=== PATIENT | male | born 1980 | race Caucasian/White ===

== ENCOUNTER 2017-03-14 10:39 | Inpatient (IN) | payer MEDICAID ==
[~2017-03-14] VITALS: Ht 185.4 cm; Wt 117.9 kg
[2017-03-14 10:56] VITALS: BP 129/72
[2017-03-14] MEDS ORDERED: NACL 0.9% 1,000 ML IV SCH (11:04)
[2017-03-14] MEDS ORDERED: ONDANSETRON 4 MG/2 ML VIAL IVP ONE (11:05)
[2017-03-14 11:18] LABS: HEMATOCRIT 45.2 % (36-52); HEMOGLOBIN 15.1 g/dL (12.0-18.0); MEAN CORPUSCULAR HEMOGLOBIN 29 pg (27-31); MEAN CORPUSCULAR HGB CONC 33 g/dL (33-37); MEAN CORPUSCULAR VOLUME 86 fL (80-94); PLATELET COUNT (AUTO) 116 K/uL (140-450); RED BLOOD CELL COUNT(AUTO) 5.28 MIL/uL (4.20-6.10); RED CELL DISTRIBUTION WIDTH 13.6 % (11.6-13.7); WHITE BLOOD COUNT (AUTO) 7.9 K/uL (4.8-10.8)
[2017-03-14 11:34] LABS: ALBUMIN 3.5 g/dL (3.4-5.0); ANION GAP 14.3 (8-16); CALCIUM 8.9 mg/dL (8.5-10.1); CARBON DIOXIDE 23.7 mmol/L (21-32); CREATININE 1.4 mg/dL (0.7-1.3); TOTAL BILIRUBIN 1.5 mg/dL (0.0-1.0); TOTAL PROTEIN, SERUM 8.3 g/dL (6.4-8.2)
[2017-03-14 11:38] LABS: BAND % (MANUAL) 23 % (0-8); LYMPHOCYTES % (MANUAL) 12 % (20-46); MONOCYTES % (MANUAL) 5 % (5-12); NEUTROPHILS % (MANUAL) 60 (43-65)
[2017-03-14 11:39] LABS: BASOPHILS % (MANUAL) 0 % (0-2); EOSINOPHILS % (MANUAL) 0 % (0-4); PLATELET ESTIMATE SLIGHTLY DECREASED
[2017-03-14] MEDS ORDERED: LORazepam 2 MG/ML VIAL IVP PRN (14:45)
[2017-03-14] MEDS ORDERED: ONDANSETRON 4 MG/2 ML VIAL IVP PRN (14:45)
[2017-03-14] MEDS ORDERED: HYDROcodone/APAP 5/325 MG 1 TAB TAB PO PRN (14:45)
[2017-03-14 15:22] LABS: BILIRUBIN,URINE 2+ (NEGATIVE); BLOOD, URINE 2+ (NEGATIVE); COLOR,URINE ORANGE (YELLOW); LEUKOCYTE ESTERASE ,URINE NEGATIVE (NEGATIVE); NITRITE, URINE NEGATIVE (NEGATIVE); PROTEIN,URINE 2+ (NEGATIVE); UGLUCOSE NEGATIVE (NEGATIVE)
[2017-03-14 15:25] LABS: APPEARANCE,URINE HAZY (CLEAR)
[2017-03-14] MEDS ORDERED: POTASSIUM CHLORIDE 10 MEQ TABER PO SCH (15:30)
[2017-03-14 15:33] LABS: ICTOTEST POSITIVE (NEGATIVE); RBC,URINE 3-10 (FEW) /HPF (0-5)
[2017-03-14 15:34] LABS: BACTERIA,URINE 1+ /HPF (None Seen); WBC,URINE 6-15 (FEW) /HPF (0-5)
[2017-03-14] MEDS: DEXT 5% /NACL 0.9% 1,000 ML IV SCH (16:19)
[2017-03-14 16:30] VITALS: BP 127/74
[2017-03-14] MEDS ORDERED: FAMOTIDINE 20 MG TAB PO ONE (16:50)
[2017-03-14 18:54] LABS: AMPHETAMINE, URINE NEG. ng/ml (NEG <=1000); BARBITURATE, URINE NEG. ng/ml (NEG <=200); BENZODIAZEPINE, URINE NEG. ng/mL (NEG <=200); CANNABINOID, URINE POS. ng/mL (NEG <=50); COCAINE, URINE NEG. ng/mL (NEG <=300); OPIATE, URINE NEG. ng/mL (NEG <=2000); PHENCYCLIDINE SCREEN,URINE NEG. ng/mL (NEG <=25)
[2017-03-14 20:00] VITALS: BP 121/71
[2017-03-14] MEDS: ACETAMINOPHEN 325 MG TAB PO PRN (23:28)
[2017-03-15] VITALS: BP 112/64
[2017-03-15] MEDS: DEXT 5% /NACL 0.9% 1,000 ML IV SCH ×3 (00:03→20:42)
[2017-03-15] MEDS: LEVOTHYROXINE 0.1 MG TAB PO SCH (05:55)
[2017-03-15 06:17] LABS: BASOPHILS # (AUTO) 0.1 K/uL (0.00-0.22); EOSINOPHILS # (AUTO) 0.1 K/uL (0-0.4); EOSINOPHILS % (AUTO) 0.9 % (0.0-4.0); HEMATOCRIT 41.6 % (36-52); LYMPHOCYTES # (AUTO) 1.4 K/uL (2.0-11.5); LYMPHOCYTES % (AUTO) 15.2 % (20.5-51.1); MEAN CORPUSCULAR HEMOGLOBIN 29 pg (27-31); MEAN CORPUSCULAR HGB CONC 34 g/dL (33-37); MEAN CORPUSCULAR VOLUME 86 fL (80-94); MONOCYTES # (AUTO) 0.6 K/uL (0.8-1.0); MONOCYTES % (AUTO) 6.4 % (1.7-9.3); NEUTROPHILS # (AUTO) 7.3 K/uL (1.8-7.7); NEUTROPHILS % (AUTO) 76.5 % (42.2-75.2); PLATELET COUNT (AUTO) 105 K/uL (140-450); RED BLOOD CELL COUNT(AUTO) 4.84 MIL/uL (4.20-6.10); RED CELL DISTRIBUTION WIDTH 13.8 % (11.6-13.7); WHITE BLOOD COUNT (AUTO) 9.5 K/uL (4.8-10.8)
[2017-03-15] MEDS: ACETAMINOPHEN 325 MG TAB PO PRN ×5 (06:17→21:26)
[2017-03-15 06:59] LABS: ALBUMIN 3.1 g/dL (3.4-5.0); ANION GAP 13.2 (8-16); CALCIUM 8.2 mg/dL (8.5-10.1); CARBON DIOXIDE 23.8 mmol/L (21-32); CREATININE 1.2 mg/dL (0.7-1.3); MAGNESIUM 1.7 mg/dL (1.8-2.4); PHOSPHORUS 2.1 mg/dL (2.5-4.9); TOTAL PROTEIN, SERUM 7.6 g/dL (6.4-8.2)
[2017-03-15 08:00] VITALS: BP 123/66
[2017-03-15] MEDS ORDERED: KCL 20 MEQ/WATER INJ PREMIX 200 ML IV SCH (09:00)
[2017-03-15] MEDS ORDERED: AZITHROMYCIN 250 MG TAB PO SCH (09:00)
[2017-03-15] MEDS: FAMOTIDINE 20 MG TAB PO SCH ×2 (09:03→20:41)
[2017-03-15] MEDS ORDERED: MAG SULF 2000 MG/WATER PREMIX 50 ML IV SCH (13:00)
[2017-03-15 16:00] VITALS: BP 134/60
[2017-03-15] MEDS ORDERED: POTASSIUM CHLORIDE 40 MEQ, LIDOCAINE 1% 25 MG in NACL 0.9% 250 ML IV SCH (16:00)
[2017-03-15] MEDS ORDERED: VANCOMYCIN PER PHARMACY MC PRN (16:35)
[2017-03-15] MEDS: VANCOMYCIN 1GM/DEXT 5% PREMIX 200 ML IV SCH (17:40)
[2017-03-15 20:00] VITALS: BP 131/84
[2017-03-15] MEDS: traZODone 50 MG TAB PO SCH (20:41)
[2017-03-16] VITALS: BP 120/83
[2017-03-16] MEDS: VANCOMYCIN 1GM/DEXT 5% PREMIX 200 ML IV SCH (01:15)
[2017-03-16] MEDS: DEXT 5% /NACL 0.9% 1,000 ML IV SCH ×2 (05:31→16:45)
[2017-03-16] MEDS: LEVOTHYROXINE 0.1 MG TAB PO SCH (05:31)
[2017-03-16 07:32] LABS: HEPATITIS A ANTIBODY IGM Negative (Negative); HEPATITIS A ANTIBODY TOTAL Positive (Negative); HEPATITIS B CORE AB TOTAL Negative (Negative); HEPATITIS B CORE, IGM Negative (Negative); HEPATITIS B SURFACE AB Reactive (.); HEPATITIS B SURFACE ANTIGEN Negative (Negative); HEPATITIS C VIRUS ANTIBODY <0.1 s/co ratio (0.0-0.9)
[2017-03-16 08:00] VITALS: BP 127/69
[2017-03-16 08:25] LABS: ANION GAP 11.4 (8-16); CALCIUM 8.1 mg/dL (8.5-10.1); CARBON DIOXIDE 23.8 mmol/L (21-32); POTASSIUM 3.2 mmol/L (3.5-5.1)
[2017-03-16] MEDS: FAMOTIDINE 20 MG TAB PO SCH ×2 (09:16→21:11)
[2017-03-16] MEDS ORDERED: VANCOMYCIN HCL 750 MG in DEXTROSE 5% 250 ML IV SCH (10:00)
[2017-03-16] MEDS: VANCOMYCIN HCL 1,500 MG in DEXTROSE 5% 250 ML IV SCH ×2 (10:46→17:45)
[2017-03-16 11:37] LABS: BASOPHILS # (AUTO) 0.1 K/uL (0.00-0.22); BASOPHILS % (AUTO) 0.9 % (0.0-2.0); EOSINOPHILS # (AUTO) 0.1 K/uL (0-0.4); EOSINOPHILS % (AUTO) 0.9 % (0.0-4.0); HEMATOCRIT 40.5 % (36-52); HEMOGLOBIN 13.5 g/dL (12.0-18.0); LYMPHOCYTES % (AUTO) 10.4 % (20.5-51.1); MEAN CORPUSCULAR HEMOGLOBIN 29 pg (27-31); MEAN CORPUSCULAR HGB CONC 33 g/dL (33-37); MEAN CORPUSCULAR VOLUME 86 fL (80-94); MONOCYTES # (AUTO) 0.6 K/uL (0.8-1.0); NEUTROPHILS % (AUTO) 81.8 % (42.2-75.2); PLATELET COUNT (AUTO) 98 K/uL (140-450); RED BLOOD CELL COUNT(AUTO) 4.73 MIL/uL (4.20-6.10); RED CELL DISTRIBUTION WIDTH 14.4 % (11.6-13.7); WHITE BLOOD COUNT (AUTO) 9.8 K/uL (4.8-10.8)
[2017-03-16] MEDS: ACETAMINOPHEN 325 MG TAB PO PRN (15:47)
[2017-03-16 16:00] VITALS: BP 119/76
[2017-03-16] MEDS ORDERED: POTASSIUM CHLORIDE 10 MEQ TABER PO SCH (17:23)
[2017-03-16] MEDS: traZODone 50 MG TAB PO SCH (21:11)
[2017-03-17 00:04] VITALS: BP 135/76
[2017-03-17] MEDS: VANCOMYCIN HCL 1,500 MG in DEXTROSE 5% 250 ML IV SCH ×2 (01:44→10:20)
[2017-03-17] MEDS: DEXT 5% /NACL 0.9% 1,000 ML IV SCH (01:44)
[2017-03-17] MEDS: LEVOTHYROXINE 0.1 MG TAB PO SCH (05:42)
[2017-03-17 08:00] VITALS: BP 118/72
[2017-03-17 09:20] LABS: BASOPHILS # (AUTO) 0.1 K/uL (0.00-0.22); BASOPHILS % (AUTO) 1.3 % (0.0-2.0); EOSINOPHILS # (AUTO) 0.1 K/uL (0-0.4); EOSINOPHILS % (AUTO) 0.9 % (0.0-4.0); HEMATOCRIT 39.1 % (36-52); HEMOGLOBIN 12.9 g/dL (12.0-18.0); LYMPHOCYTES # (AUTO) 1.1 K/uL (2.0-11.5); MEAN CORPUSCULAR HEMOGLOBIN 29 pg (27-31); MEAN CORPUSCULAR HGB CONC 33 g/dL (33-37); MEAN CORPUSCULAR VOLUME 87 fL (80-94); MONOCYTES # (AUTO) 0.9 K/uL (0.8-1.0); MONOCYTES % (AUTO) 9.3 % (1.7-9.3); NEUTROPHILS # (AUTO) 7.4 K/uL (1.8-7.7); NEUTROPHILS % (AUTO) 77.5 % (42.2-75.2); PLATELET COUNT (AUTO) 137 K/uL (140-450); RED CELL DISTRIBUTION WIDTH 14.3 % (11.6-13.7); WHITE BLOOD COUNT (AUTO) 9.6 K/uL (4.8-10.8)
[2017-03-17] MEDS: FAMOTIDINE 20 MG TAB PO SCH ×2 (09:23→21:48)
[2017-03-17 09:37] LABS: ANION GAP 10.2 (8-16); CALCIUM 8.2 mg/dL (8.5-10.1); CARBON DIOXIDE 25.1 mmol/L (21-32); POTASSIUM 3.3 mmol/L (3.5-5.1)
[2017-03-17] MEDS ORDERED: POTASSIUM CHLORIDE 10 MEQ TABER PO SCH (13:25)
[2017-03-17] MEDS: NACL 0.9% 1,000 ML IV SCH (13:41)
[2017-03-17] MEDS: ACETAMINOPHEN 325 MG TAB PO PRN (15:50)
[2017-03-17 16:00] VITALS: BP 114/71
[2017-03-17] MEDS: traZODone 50 MG TAB PO SCH (21:48)
[2017-03-18 01:30] VITALS: BP 112/76
[2017-03-18] MEDS: LEVOTHYROXINE 0.1 MG TAB PO SCH (06:47)
[2017-03-18 07:37] LABS: BASOPHILS % (AUTO) 0.4 % (0.0-2.0); EOSINOPHILS # (AUTO) 0.2 K/uL (0-0.4); EOSINOPHILS % (AUTO) 1.5 % (0.0-4.0); HEMOGLOBIN 12.7 g/dL (12.0-18.0); LYMPHOCYTES # (AUTO) 1.7 K/uL (2.0-11.5); LYMPHOCYTES % (AUTO) 16.9 % (20.5-51.1); MEAN CORPUSCULAR HEMOGLOBIN 30 pg (27-31); MEAN CORPUSCULAR HGB CONC 35 g/dL (33-37); MEAN CORPUSCULAR VOLUME 86 fL (80-94); MONOCYTES # (AUTO) 1.2 K/uL (0.8-1.0); NEUTROPHILS # (AUTO) 7.2 K/uL (1.8-7.7); NEUTROPHILS % (AUTO) 69.2 % (42.2-75.2); PLATELET COUNT (AUTO) 226 K/uL (140-450); RED BLOOD CELL COUNT(AUTO) 4.19 MIL/uL (4.20-6.10); RED CELL DISTRIBUTION WIDTH 14.5 % (11.6-13.7); WHITE BLOOD COUNT (AUTO) 10.3 K/uL (4.8-10.8)
[2017-03-18 07:59] LABS: ANION GAP 12.5 (8-16); CALCIUM 8.5 mg/dL (8.5-10.1); CARBON DIOXIDE 23.2 mmol/L (21-32); CREATININE 0.8 mg/dL (0.7-1.3); POTASSIUM 3.7 mmol/L (3.5-5.1)
[2017-03-18 08:00] VITALS: BP 108/68
[2017-03-18 08:02] LABS: MAGNESIUM 1.9 mg/dL (1.8-2.4); PHOSPHORUS 3.7 mg/dL (2.5-4.9)
[2017-03-18] MEDS: NACL 0.9% 1,000 ML IV SCH ×2 (08:47)
[2017-03-18] MEDS: FAMOTIDINE 20 MG TAB PO SCH (08:54)
[2017-03-18] MEDS ORDERED: ACET-1182 PO (09:26)
[2017-03-18] MEDS ORDERED: FAMO20TA13 PO (09:26)
[2017-03-18] MEDS ORDERED: SYN.1 PO (09:26)
== END 2017-03-18 11:40 | disposition home or self-care (01) | DRG 720 ==
LOC: MED 10:39 → MTU 14:53
PROVIDERS: ADMIT Preventive Medicine Preventive Medicine/Occupational Environmental Medicine; ATTEND Preventive Medicine Preventive Medicine/Occupational Environmental Medicine
PROC: 02HV33Z Insertion of Infusion Device into Superior Vena Cava, Percutaneous Approach (ICD-10-PCS; principal; 2017-03-17)
PROC: B548ZZA Ultrasonography of Superior Vena Cava, Guidance (ICD-10-PCS; 2017-03-17)
DX: A41.01 Sepsis due to Methicillin susceptible Staphylococcus aureus (principal); N17.9 Acute kidney failure, unspecified; D69.6 Thrombocytopenia, unspecified; E11.65 Type 2 diabetes mellitus with hyperglycemia; E83.51 Hypocalcemia; E87.1 Hypo-osmolality and hyponatremia; B95.61 Methicillin susceptible Staphylococcus aureus infection as the cause of diseases classified elsewhere; B96.89 Other specified bacterial agents as the cause of diseases classified elsewhere; J02.8 Acute pharyngitis due to other specified organisms; F12.10 Cannabis abuse, uncomplicated; T39.395A Adverse effect of other nonsteroidal anti-inflammatory drugs [NSAID], initial encounter; E66.9 Obesity, unspecified; E87.6 Hypokalemia; K21.9 Gastro-esophageal reflux disease without esophagitis; E03.9 Hypothyroidism, unspecified; N39.0 Urinary tract infection, site not specified; E86.0 Dehydration; R74.0 Nonspecific elevation of levels of transaminase and lactic acid dehydrogenase [LDH]; K76.0 Fatty (change of) liver, not elsewhere classified; Z72.0 Tobacco use; Z90.49 Acquired absence of other specified parts of digestive tract; Z79.899 Other long term (current) drug therapy; Y92.89 Other specified places as the place of occurrence of the external cause; Z68.34 Body mass index [BMI] 34.0-34.9, adult
CPT/HCPCS: 36415; 71010; 76700; 80048; 80053; 80202; 80305; 81001; 82150; 82948; 83690; 83735; 84100; 84443; 85025; 85651; 86140; 86704; 86706; 86708; 86709; 86803; 87040; 87081; 87086; 87186; 87340; 93005; 96361; 96374; 99285; C1751; J0696; J2001; J2405; J3370; J3475; J3480; J7030; J7042; J7060; Q0092

== ENCOUNTER 2020-04-10 15:49 | Emergency (ER) | payer SELFPAY ==
[~2020-04-10] VITALS: Ht 185.4 cm; Wt 120.2 kg
[~2020-04-10 15:49] MED LIST: ACET-1182 PO; FAMO20TA13 PO; SYN.1 PO
[2020-04-10 15:52] VITALS: BP 147/83
--- NOTE | 2020-04-10 16:18 | NUR ---
39 Y/O MALE C/O LEFT SIDED CHEST PAIN X1 DAY RADIATES TO LEFT BACK. PAIN IS 9/10, PT STATES HE TOOK TYLENOL WITH CODEINE FOR PAIN, BUT IT IS UNRELIEVED. DENIES ANY SOB/COUGH/FEVER. AAOX4. AMBULATORY WITH STEADY GAIT. AFEBRILE. VSS. PT STATES HIS ONLY DRUG USE IS MARIJUANA AND TOBACCO PMH: THYROID ISSUES. NKA
[2020-04-10 16:54] LABS: BASOPHILS % (AUTO) 0.5 % (0.0-2.0); EOSINOPHILS # (AUTO) 0.4 K/uL (0-0.4); EOSINOPHILS % (AUTO) 3.8 % (0.0-4.0); HEMATOCRIT 46.9 % (36-52); HEMOGLOBIN 15.4 g/dL (12.0-18.0); LYMPHOCYTES # (AUTO) 2.2 K/uL (2.0-11.5); LYMPHOCYTES % (AUTO) 21.8 % (20.5-51.1); MEAN CORPUSCULAR HEMOGLOBIN 30 pg (27-31); MEAN CORPUSCULAR HGB CONC 33 g/dL (33-37); MEAN CORPUSCULAR VOLUME 90.9 fL (80-94); MONOCYTES # (AUTO) 0.9 K/uL (0.8-1.0); MONOCYTES % (AUTO) 8.5 % (1.7-9.3); NEUTROPHILS # (AUTO) 6.6 K/uL (1.8-7.7); NEUTROPHILS % (AUTO) 65.4 % (42.2-75.2); PLATELET COUNT (AUTO) 246 K/uL (140-450); RED BLOOD CELL COUNT(AUTO) 5.16 MIL/uL (4.20-6.10); RED CELL DISTRIBUTION WIDTH 14.5 % (11.6-13.7); WHITE BLOOD COUNT (AUTO) 10.1 K/uL (4.8-10.8)
[2020-04-10 17:10] LABS: PROTHROMBIN TIME 9.8 secs (10.8-13.4)
[2020-04-10 17:14] LABS: ALBUMIN 3.7 g/dL (3.4-5.0); ANION GAP 15.3 (8-16); CARBON DIOXIDE 25.8 mmol/L (21-32); CREATININE 1.3 mg/dL (0.6-1.3); POTASSIUM 4.1 mmol/L (3.5-5.1); TOTAL BILIRUBIN 0.3 mg/dL (0.0-1.0)
[2020-04-10 17:24] LABS: FREE T4 (FREE THYROXINE) 0.56 ng/dL (0.76-1.46); THYROID STIMULATING HORMONE 19.72 uIU/mL (0.34-3.74)
[2020-04-10 18:47] VITALS: BP 142/79
== END 2020-04-10 18:48 | disposition home or self-care (01) ==
LOC: MED 15:49
DX: R07.9 Chest pain, unspecified (principal); E07.9 Disorder of thyroid, unspecified; K21.9 Gastro-esophageal reflux disease without esophagitis; Z79.899 Other long term (current) drug therapy
CPT/HCPCS: 36415; 71045; 80053; 83880; 84439; 84443; 84484; 85025; 85610; 85730; 93005; 99285; Q0092

== ENCOUNTER 2020-11-25 18:07 | Emergency (ER) | payer SELFPAY ==
[~2020-11-25] VITALS: Ht 182.9 cm; Wt 115.2 kg
[2020-11-25 18:30] VITALS: BP 125/73
[2020-11-25] MEDS ORDERED: KETOROLAC 60 MG/2 ML VIAL IM ONE (20:10)
[2020-11-25 20:43] LABS: BASOPHILS # (AUTO) 0.1 K/uL (0.00-0.22); BASOPHILS % (AUTO) 0.4 % (0.0-2.0); EOSINOPHILS # (AUTO) 0.4 K/uL (0-0.4); EOSINOPHILS % (AUTO) 3.6 % (0.0-4.0); HEMATOCRIT 47.1 % (36-52); HEMOGLOBIN 15.7 g/dL (12.0-18.0); LYMPHOCYTES # (AUTO) 2.4 K/uL (2.0-11.5); LYMPHOCYTES % (AUTO) 19.8 % (20.5-51.1); MEAN CORPUSCULAR HEMOGLOBIN 30 pg (27-31); MEAN CORPUSCULAR HGB CONC 33 g/dL (33-37); MEAN CORPUSCULAR VOLUME 89.3 fL (80-94); MONOCYTES % (AUTO) 8.1 % (1.7-9.3); NEUTROPHILS # (AUTO) 8.3 K/uL (1.8-7.7); NEUTROPHILS % (AUTO) 68.1 % (42.2-75.2); PLATELET COUNT (AUTO) 260 K/uL (140-450); RED BLOOD CELL COUNT(AUTO) 5.27 MIL/uL (4.20-6.10); WHITE BLOOD COUNT (AUTO) 12.2 K/uL (4.8-10.8)
[2020-11-25 21:03] LABS: ALBUMIN 3.7 g/dL (3.4-5.0); ANION GAP 10.2 (8-16); CREATININE 1.4 mg/dL (0.6-1.3); FREE T4 (FREE THYROXINE) 0.53 ng/dL (0.76-1.46); POTASSIUM 4.2 mmol/L (3.5-5.1); THYROID STIMULATING HORMONE 18.21 uIU/mL (0.34-3.74); TOTAL BILIRUBIN 0.4 mg/dL (0.0-1.0)
[2020-11-25] MEDS ORDERED: SYN.1 PO (21:31)
[2020-11-25 21:52] VITALS: BP 125/73
== END 2020-11-25 21:52 | disposition home or self-care (01) ==
LOC: MED 18:07
DX: E03.9 Hypothyroidism, unspecified (principal); K21.9 Gastro-esophageal reflux disease without esophagitis; F17.200 Nicotine dependence, unspecified, uncomplicated; Z79.899 Other long term (current) drug therapy; Z90.49 Acquired absence of other specified parts of digestive tract
CPT/HCPCS: 36415; 80053; 84439; 84443; 85025; 93005; 96372; 99284; J1885

== ENCOUNTER 2023-04-05 13:10 | Emergency (ER) | payer OTHER ==
[~2023-04-05] VITALS: Ht 182.9 cm; Wt 117.9 kg
[2023-04-05 13:28] VITALS: BP 90/68; PULSE 89; RESP 18; TEMP 97.5; O2SAT 97
[2023-04-05] MEDS ORDERED: IBUPROFEN 600 MG TAB PO ONE (15:00)
== END 2023-04-05 15:16 | disposition left against medical advice (07) ==
LOC: MED 13:10
DX: M79.641 Pain in right hand (principal); M79.642 Pain in left hand; I25.2 Old myocardial infarction; E11.9 Type 2 diabetes mellitus without complications; K21.9 Gastro-esophageal reflux disease without esophagitis; E05.90 Thyrotoxicosis, unspecified without thyrotoxic crisis or storm; Z79.899 Other long term (current) drug therapy
CPT/HCPCS: 93005; 99283

== ENCOUNTER 2023-04-12 15:13 | Emergency (ER) | payer OTHER ==
[~2023-04-12] VITALS: Ht 185.4 cm; Wt 117.9 kg
[2023-04-12 15:47] VITALS: BP 127/69; PULSE 86; RESP 18; TEMP 98.1; O2SAT 97
[2023-04-12 16:26] LABS: BASOPHILS % (AUTO) 0.4 % (0.0-2.0); EOSINOPHILS # (AUTO) 0.3 K/uL (0-0.4); EOSINOPHILS % (AUTO) 3.2 % (0.0-4.0); HEMATOCRIT 47.3 % (36-52); LYMPHOCYTES # (AUTO) 2.3 K/uL (2.0-11.5); LYMPHOCYTES % (AUTO) 21.4 % (20.5-51.1); MEAN CORPUSCULAR HEMOGLOBIN 30 pg (27-31); MEAN CORPUSCULAR HGB CONC 34 g/dL (33-37); MEAN CORPUSCULAR VOLUME 88.7 fL (80-94); MONOCYTES % (AUTO) 9.1 % (1.7-9.3); NEUTROPHILS # (AUTO) 7.1 K/uL (1.8-7.7); NEUTROPHILS % (AUTO) 65.9 % (42.2-75.2); PLATELET COUNT (AUTO) 261 K/uL (140-450); RED BLOOD CELL COUNT(AUTO) 5.33 MIL/uL (4.20-6.10); RED CELL DISTRIBUTION WIDTH 14.5 % (11.6-13.7); WHITE BLOOD COUNT (AUTO) 10.7 K/uL (4.8-10.8)
[2023-04-12 16:50] LABS: ANION GAP 13.7 (8-16); CALCIUM 8.5 mg/dL (8.5-10.1); CARBON DIOXIDE 25.1 mmol/L (21-32); POTASSIUM 3.8 mmol/L (3.5-5.1)
[2023-04-12 16:51] LABS: ALBUMIN 3.9 g/dL (3.4-5.0); TOTAL BILIRUBIN 0.4 mg/dL (0.0-1.0); TOTAL PROTEIN, SERUM 8.1 g/dL (6.4-8.2)
[2023-04-12] MEDS ORDERED: GLYPS RC (17:34)
[2023-04-12] MEDS ORDERED: DOCU-299 PO (17:34)
== END 2023-04-12 17:41 | disposition home or self-care (01) ==
LOC: MED 15:13
DX: K62.5 Hemorrhage of anus and rectum (principal); E03.9 Hypothyroidism, unspecified; I25.10 Atherosclerotic heart disease of native coronary artery without angina pectoris; K21.9 Gastro-esophageal reflux disease without esophagitis; Z79.899 Other long term (current) drug therapy
CPT/HCPCS: 36415; 80053; 85025; 99283